=== PATIENT | male | born 1965 | race Caucasian/White ===

== ENCOUNTER 2017-10-31 17:15 | Outpatient (CLI) | payer OTHER ==
--- NOTE | 2017-11-01 11:24 | Ultrasound Report ---
LIMITED PELVIC ULTRASOUND: 10/31/2017 CLINICAL INDICATION: Right inguinal pain, question hernia. TECHNIQUE: Real-time scanning was performed with financial services representative static images obtained. FINDINGS: Ultrasound of the region of pain identified by the patient was performed. There is no evidence of a right inguinal hernia. No adenopathy is seen. Trace fluid is incidentally noted in the right hip joint. IMPRESSION: NO EVIDENCE OF RIGHT INGUINAL HERNIA. TD: 11/01/2017 12:23 [facility]
== END 2017-10-31 17:16 | disposition home or self-care (01) ==
LOC: DI 17:15
PROVIDERS: ATTEND Naprapath
DX: R10.30 Lower abdominal pain, unspecified (principal); M54.5 Low back pain
CPT/HCPCS: 76857

== ENCOUNTER 2019-04-26 07:20 | Emergency (ER) | payer OTHER ==
[2019-04-26] MEDS ORDERED: KETOROLAC 60 MG/2 ML VIAL IM STA (07:39)
--- NOTE | 2019-04-26 07:41 | ED Physician Documentation ---
History of Present Illness - Stated complaint Stated Complaint: BACK PX - Chief complaint Chief Complaint: Back Pain - History obtained from History obtained from: Patient, Family - History of Present Illness Timing: Yesterday - Additonal information Additional information: Patient is an otherwise healthy 53-year-old male presenting with low back strain after injury last night. 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 Patient denies particular twisting mechanism, driving patient, falling himself, striking his back, or other injury. Patient denies radiation into the legs, but states that pain is bilateral and radiates forward towards abdomen. Patient denies nausea, vomiting, urinary or stool changes including incontinence, other abdominal pain. Patient also denies any change in strength, sensation, range of motion to his legs. Patient denies any overlying skin changes to the area. Otherwise, patient noted mild improvement with Tylenol. No other improving or worsening factors noted. Review of Systems GI: denies: Abdominal Pain, Nausea, Vomiting : denies: Dysuria Musculoskeletal: reports: Back pain PD PAST MEDICAL HISTORY - Past Medical History Past Medical History: No - Past Surgical History Past Surgical History: No - Present Medications Home Medications: Ambulatory Orders Medication Instructions Recorded Confirmed No Known Home Medications 04/26/19 04/26/19 - Allergies Allergies/Adverse Reactions: Allergies Allergy/AdvReac Type Severity Reaction Status Date / Time No Known Drug Allergies Allergy Verified 04/26/19 07:25 - Social History Does the pt smoke?: No Smoking Status: Never smoker Does the pt have substance abuse?: No PD ED PE NORMAL - Vitals Vital signs reviewed: Yes - General General: Alert and oriented X 3, No acute distress, Well developed/nourished - HEENT HEENT: Atraumatic, Moist mucous membranes - Cardiac Cardiac: RRR, No murmur - Respiratory Respiratory: No respiratory distress, Clear bilaterally - Abdomen Abdomen: Soft, Non tender, Non distended - Back Back: No spinal TTP, Other (No significant paraspinal muscle spasm or tenderness noted to the lower thoracic or lumbar area. Patient reports generalized midline pain, but no specific bony tenderness, deformity, or step-offs noted.) - Derm Derm: Normal color, Warm and dry, No rash - Extremities Extremities: No deformity, No tenderness to palpate - Neuro Neuro: Alert and oriented X 3, No motor deficit, No sensory deficit - Psych Psych: Normal mood, Normal affect Results - Vitals Vitals: Vital Signs - 24 hr 04/26/19 07:23 Temperature 36.3 C L Heart Rate 79 Respiratory 20 Rate Blood Pressure 134/87 H O2 Saturation 99 Oxygen O2 Source Room air PD MEDICAL DECISION MAKING - ED course Complexity details: reviewed old records, considered differential, d/w patient, d/w family ED course: Patient had traumatic mechanism yesterday that likely induced lower back strain. Patient denies mechanism that would raise high suspicion for more significant trauma including vertebral injury. Based on physical exam and patient's report, also have low suspicion for herniated disc, epidural abscess, cauda equina, or other disc or spinal cord injury.Patient denies radiation into the legs therefore making sciatica less likely. No overlying skin changes to indicate abscess, cellulitis, shingles, or other rash.Do not feel patient requires emergent imaging or other invasive testing at this time. Had lengthy discussions regarding likely musculoskeletal injury as opposed to spinal cord or vertebral issues. Discussed imaging at this time which would likely be plain films, but patient declined. Feel this is reasonable as plain films would likely show nothing abnormal. Also discussed prescribed medications including muscle relaxants and pain medication, which patient declined. However, patient willing to take Toradol in ED. Also discussed other supportive cares, strict return precautions, and appropriate follow-up. Work note to be provided. Patient and voiced understanding and are comfortable with discharge plan. Departure - Departure Disposition: 01 Home, Self Care Clinical Impression: Back pain Qualifiers: Back pain location: low back pain Chronicity: acute Back pain laterality: bilateral Sciatica presence: without sciatica Qualified Code(s): M54.5 - Low back pain Condition: Good Instructions: ED Low Back Pain Injury Follow-Up: your,doctor [Other] - Within 3 Days Comments: Recommend use of ibuprofen, Aleve, Tylenol as needed for pain relief. Also recommend heat application, massage, stretching, and follow-up with primary care physician in next 2 to 3 days. Please return to ED sooner if experience worsening symptoms, new injury, or other concerns. Forms: Activity restrictions
[2019-04-26 07:58] VITALS: BP 119/79
== END 2019-04-26 08:13 | disposition home or self-care (01) ==
LOC: ED 07:20
DX: S39.012A Strain of muscle, fascia and tendon of lower back, initial encounter (principal); X50.0XXA Overexertion from strenuous movement or load, initial encounter; Y93.F2 Activity, caregiving, lifting; Y99.0 Civilian activity done for income or pay
CPT/HCPCS: 99283

== ENCOUNTER 2019-06-04 13:10 | Emergency (ER) | payer OTHER ==
--- NOTE | 2019-06-04 13:21 | ED Physician Documentation ---
History of Present Illness - Stated complaint Stated Complaint: FINGER LACERATION - Chief complaint Chief Complaint: Ext Problem - History obtained from History obtained from: Patient - Additonal information Additional information: Patient is a previously healthy, right-handed 53-year-old male presenting with laceration to the dorsum of the right middle finger after accidentally cutting it on a cat food container earlier this morning. Tetanus unknown. Patient reports mild discomfort, but significant bleeding. Patient denies change in strength, range of motion, sensation to this finger or hand. No other injuries. No other improving or worsening factors noted. Review of Systems Skin: reports: Laceration (s) Musculoskeletal: denies: Extremity pain, Joint pain, Extremity swelling, Joint swelling Neurologic: denies: Focal weakness, Numbness PD PAST MEDICAL HISTORY - Past Medical History Past Medical History: No - Past Surgical History Past Surgical History: No - Present Medications Home Medications: Ambulatory Orders Medication Instructions Recorded Confirmed No Known Home Medications 04/26/19 04/26/19 - Allergies Allergies/Adverse Reactions: Allergies Allergy/AdvReac Type Severity Reaction Status Date / Time No Known Drug Allergies Allergy Verified 06/04/19 13:19 - Social History Does the pt smoke?: No Smoking Status: Never smoker Does the pt have substance abuse?: No PD ED PE NORMAL - Vitals Vital signs reviewed: Yes - General General: Alert and oriented X 3, No acute distress, Well developed/nourished - HEENT HEENT: Atraumatic, Moist mucous membranes - Cardiac Cardiac: Strong equal pulses - Respiratory Respiratory: No respiratory distress - Derm Derm: Normal color, Warm and dry, No rash, Other (Approximately half inch half- [place] laceration to dorsum of right middle finger overlying the DIP joint without evidence of damage to underlying structures including tendon, retained foreign body, signs of infection or other complication) - Extremities Extremities: No deformity, No tenderness to palpate - Neuro Neuro: Alert and oriented X 3, No motor deficit, No sensory deficit - Psych Psych: Normal mood, Normal affect Results - Vitals Vitals: Vital Signs - 24 hr 06/04/19 13:16 Temperature 36.2 C L Heart Rate 69 Respiratory 19 Rate Blood Pressure 146/91 H O2 Saturation 97 Oxygen O2 Source Room air Procedures - Laceration (location) Hand right Length in cm: 1 Wound type: Curved Neurovascular status: Sensory intact, Motor intact, Vascular intact Tendon involvement: Tendon intact Wound Preparation: Irrigated copiously NS Skin layer closure: Dermabond, Steri strips Other: Patient tolerated well, No complications, Neurovascular intact, Dressing applied, Tetanus booster given PD MEDICAL DECISION MAKING - ED course Complexity details: re-evaluated patient, considered differential, d/w patient ED course: Patient presenting with uncomplicated laceration to right middle finger. Do not see signs of infection or have concern for retained foreign body. Do not find evidence of damage to underlying structures or tendon injury. Originally was going to use let for anesthetic and bleeding control, but no longer have LET available in ED. Bleeding stopped on its own by the time digital block was prepared. Patient's wound cleaned and repaired with Steri-Strips and Dermabond without issue. Finger splint placed to provide immobility and avoid reopening of wound. Tetanus updated. Discussed use of splint, wound care, supportive cares, return precautions and follow-up. Patient voiced understanding and is comfortable with discharge plan. Departure - Departure Disposition: 01 Home, Self Care Clinical Impression: Laceration Condition: Good Instructions: ED Laceration All, ED Laceration Ext Skin Glue Follow-Up: your,doctor [Other] - Within 3 Days Comments: Please keep splint in place over next 2 to 3 days to avoid moving finger and reopening of wound. Also recommend ibuprofen/Tylenol as needed, as well as ice and elevation. Please keep wound clean and dry to avoid infection. Do not submerge underwater. Do not need to apply anything topically to the wound. Tape and glue will come off on its own. Follow-up with primary care physician in next 2 to 3 days and return to ED sooner if experience wound opening, wound infection, or have other concerns.
[2019-06-04] MEDS ORDERED: TETANUS/DIPHTHERIA/PERTUSSIS 0.5 ML SYRINGE IM ONE (13:26)
[2019-06-04] MEDS ORDERED: LIDOCAINE-EPINEPH-TETRACAINE 3 ML SYRINGE TOP STA (13:26)
[2019-06-04] MEDS ORDERED: LIDOCAINE 1%-EPI 1:100000 20 ML MDV SUBQ STA (13:37)
[2019-06-04 14:48] VITALS: BP 122/86
== END 2019-06-04 14:48 | disposition home or self-care (01) ==
LOC: ED 13:10
DX: S61.212A Laceration without foreign body of right middle finger without damage to nail, initial encounter (principal); W26.8XXA Contact with other sharp object(s), not elsewhere classified, initial encounter; Z23 Encounter for immunization
CPT/HCPCS: 12001; 90471